=== PATIENT | male | born 1980 | race Two or more races ===

== ENCOUNTER 2019-05-21 18:50 | Emergency (ER) | payer OTHER ==
[2019-05-21] MEDS ORDERED: KETOROLAC TROMETHAMINE 60 MG/2 ML SDV IM ONE (19:25)
[2019-05-21] MEDS ORDERED: ONDANSETRON 4 MG TAB.RAPDIS PO ONE (19:25)
--- NOTE | 2019-05-21 19:25 | ER Document Report ---
ED Medical Screen (RME) - General Chief Complaint: Flank Pain Stated Complaint: ABDOMINAL PAIN, BLOOD IN URINE Time Seen by Provider: 05/21/19 19:22 Mode of Arrival: Ambulatory Information source: Patient Notes: 38-year-old male presented to ED for right flank pain that started 430 today. He states he also has blood in his urine. He states he does have a history of kidney stones about 9 years ago. states that he vomited once while in the waiting room. He states he smokes a pack a day. He does live with his . I have greeted and performed a rapid initial assessment of this patient. A comprehensive ED assessment and evaluation of the patient, analysis of test results and completion of medical decision making process will be conducted by an additional ED providers. TRAVEL OUTSIDE OF THE [place] IN LAST 30 DAYS: No - Related Data Allergies/Adverse Reactions: No Known Allergies Allergy (Unverified 08/03/15 04:13) Physical Exam - Vital signs Vitals: Temp Pulse Resp BP Pulse Ox 97.5 F 65 18 128/96 H 96 05/21/19 19:00 05/21/19 19:00 05/21/19 19:00 05/21/19 19:00 05/21/19 19:00 Course - Vital Signs Vital signs: Temp Pulse Resp BP Pulse Ox 97.5 F 65 18 128/96 H 96 05/21/19 19:00 05/21/19 19:00 05/21/19 19:00 05/21/19 19:00 05/21/19 19:00
[2019-05-21 19:56] LABS: AMORPHOUS SEDIMENT,URINE TRACE /HPF; APPEARANCE,URINE CLOUDY; BILIRUBIN,URINE NEGATIVE (NEGATIVE); COLOR,URINE DARK YELLOW; GLUCOSE, URINE NEGATIVE (NEGATIVE); KETONES,URINE NEGATIVE (NEGATIVE); LEUKOCYTE ESTERASE,URINE NEGATIVE (NEGATIVE); NITRITE,URINE NEGATIVE (NEGATIVE); PROTEIN,URINE 100 mg/dL (NEGATIVE); URINE SPECIFIC GRAVITY 1.019; UROBILINOGEN,URINE NEGATIVE mg/dL (<2.0)
[2019-05-21 20:45] LABS: ABSOLUTE BASOPHILS # (AUTO) 0.1 10^3/uL (0.0-0.2); ABSOLUTE EOSINOPHILS # (AUTO) 0.1 10^3/uL (0.0-0.6); ABSOLUTE LYMPHOCYTES (AUTO) 1.8 10^3/uL (0.5-4.7); ABSOLUTE MONOCYTES (AUTO) 0.8 10^3/uL (0.1-1.4); ABSOLUTE NEUT (AUTO) 11.9 10^3/uL (1.7-8.2); BASOPHILS % (AUTO) 0.5 % (0-2); EOSINOPHILS % (AUTO) 0.9 % (0-6); HEMATOCRIT 43.2 % (37.9-51.0); HEMOGLOBIN 13.6 g/dL (13.5-17.0); LYMPHOCYTES % (AUTO) 12.3 % (13-45); MEAN CORPUSCULAR HGB CONC 31.6 g/dL (32.0-36.0); MEAN CORPUSCULAR VOLUME 70 fl (80-97); MONOCYTES % (AUTO) 5.5 % (3-13); PLATELET COUNT 295 10^3/uL (150-450); RED CELL DISTRIBUTION WIDTH 14.9 % (11.5-14.0); SEGMENTED NEUTROPHILS % (AUTO) 80.8 % (42-78); TOTAL CELLS COUNTED % (AUTO) 100 %; WHITE BLOOD COUNT 14.7 10^3/uL (4.0-10.5)
--- NOTE | 2019-05-21 20:49 | RADIOLOGY REPORT (SQ) ---
CT ABDOMEN PELVIS WITHOUT IV CONTRAST EXAM DATE: 05/21/2019 7:27 PM CDT HISTORY: Right flank pain and hematuria. COMPARISON: None. TECHNIQUE: CT scan of the abdomen and pelvis was performed without IV contrast. This exam was performed according to our departmental dose-optimization program, which includes automated exposure control, adjustment of the mA and/or kV according to patient size and/or use of iterative reconstruction technique. FINDINGS: The lung bases are clear. No pleural or pericardial effusions. There is a 5 mm obstructing stone at the left UVJ with left-sided inflammatory changes. A tiny nonobstructing stone is seen in the right kidney. The liver, spleen, pancreas, gallbladder, and adrenal glands are normal. No small bowel obstruction. The appendix is normal. No evidence of acute diverticulitis. No adenopathy, free fluid, or free air is identified. The aorta is normal caliber. The osseous structures are intact. IMPRESSION: 1. 5 mm obstructing stone at the left UVJ with mild left-sided inflammatory changes. 2. Tiny nonobstructing stone in the right kidney.
[2019-05-21 21:03] LABS: ALBUMIN 5.4 g/dL (3.5-5.0); ALKALINE PHOSPHATASE 56 U/L (38-126); ANION GAP 15 (5-19); ASPARTATE AMINO TRANSFERASE 36 U/L (17-59); BILIRUBIN,DIRECT 0.2 mg/dL (0.0-0.4); BILIRUBIN,TOTAL 0.7 mg/dL (0.2-1.3); BLOOD UREA NITROGEN 15 mg/dL (7-20); CALCIUM 11.3 mg/dL (8.4-10.2); CARBON DIOXIDE 29 mmol/L (22-30); CHLORIDE 101 mmol/L (98-107); GLUCOSE 124 mg/dL (75-110); POTASSIUM 4.8 mmol/L (3.6-5.0); TOTAL PROTEIN 8.7 g/dL (6.3-8.2)
[2019-05-21] MEDS ORDERED: TAMSULOSIN HCL 0.4 MG CAP.SR.24H PO ONE (22:49)
[2019-05-21] MEDS ORDERED: NORMAL SALINE 1000 ML 1,000 ML IV ONE (22:49)
[2019-05-21] MEDS ORDERED: OXYCODONE-ACETAMINOPHEN 5-325 MG TABLET PO ONE (22:49)
--- NOTE | 2019-05-21 23:34 | ER Document Report ---
ED General - General Chief Complaint: Flank Pain Stated Complaint: ABDOMINAL PAIN, BLOOD IN URINE Time Seen by Provider: 05/21/19 19:22 Mode of Arrival: Ambulatory Information source: Patient Notes: This 38-year-old male presents emergency department with left-sided flank pain that started today at approximately 1630. He reports he vomited one time due to pain. Also had a headache. He reports history of kidney stones but he has not had them in a long time. Reports he drinks a lot of water Gatorade and sweet tea. Denies fever nausea or diarrhea. Last bowel movement was this morning. Denies pain with void but he noted blood in his urine today. Patient received Toradol by the [facility] provider reports that did help his pain earlier but he feels like it is coming back now. TRAVEL OUTSIDE OF THE [place] 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 Lives with: Family Family History: Reviewed & Not Pertinent Patient has suicidal ideation: No Patient has homicidal ideation: No Renal/ Medical History: Reports: Hx Kidney Stones Surgical Hx: Negative Review of Systems - Review of Systems Notes: Review HPI for review of systems., All other systems negative Physical Exam - Vital signs Vitals: Temp Pulse Resp BP Pulse Ox 97.5 F 65 18 128/96 H 96 05/21/19 19:00 05/21/19 19:00 05/21/19 19:00 05/21/19 19:00 05/21/19 19:00 - General General appearance: Appears well, Alert In distress: None - HEENT Head: Normocephalic, Atraumatic Eyes: Normal Conjunctiva: Normal Extraocular movements intact: Yes Neck: Normal, Supple. No: Lymphadenopathy - Respiratory Respiratory status: No respiratory distress Chest status: Nontender Breath sounds: Normal Chest palpation: Normal - Cardiovascular Rhythm: Regular Heart sounds: Normal auscultation Murmur: No - Abdominal Inspection: Normal Distension: No distension Bowel sounds: Normal Tenderness: Nontender Organomegaly: No organomegaly - Back Back: Normal, CVA tenderness - Left - Extremities General upper extremity: Normal ROM, Normal strength General lower extremity: Normal ROM, Normal strength - Neurological Neuro grossly intact: Yes Cognition: Normal Orientation: AAOx4 [place] Coma Scale Eye Opening: Spontaneous [place] Coma Scale Verbal: Oriented [place] Coma Scale Motor: Obeys Commands Santi Coma Scale Total: 15 Speech: Normal - Psychological Associated symptoms: Normal affect, Normal mood - Skin Skin Temperature: Warm Skin Moisture: Dry Skin Color: Normal Course - Re-evaluation Re-evalutation: 05/22/19 00:46 38-year-old male presents emergency department with complaints of left-sided flank pain that started this afternoon around 1630. Patient has history of kidney stones although he has not had a kidney stone in like 9 years. Reports he drinks Gatorade and water occasional sweet tea. CT shows 5 mm obstructing stone at the left UVJ with mild left-sided inflammatory changes and with tiny nonobstructing stones in the right kidney. Patient l eukocytosis 14.7 with slight shift. Patient denies pain with void. Denies fever vomiting diarrhea. Patient was instructed on Flomax narcotic for pain medication. He was also given a liter of fluids while in the emergency department. He was instructed to return immediately to the emergency department for fever increasing pain. Otherwise follow-up with urology on Friday. He verbalized understanding to all instructions. Abdomen/Pelvis CT 05/21/19 19:27 IMPRESSION: 1. 5 mm obstructing stone at the left UVJ with mild left-sided inflammatory changes. 2. Tiny nonobstructing stone in the right kidney. 05/21/19 20:19 05/21/19 20:19 MCV 70 fl (80-97) L 05/21/19 20: MCH 22.0 pg (27.0-33.4) L 05/21/19 20: MCHC 31.6 g/dL (32.0-36.0) L 05/21/19 20: RDW 14.9 % (11.5-14.0) H 05/21/19 20: Seg Neutrophils % 80.8 % (42-78) H 05/21/19 20:19 Chloride 101 mmol/L (98-107) 05/21/19 20:19 Carbon Dioxide 29 mmol/L (22-30) 05/21/19 20:19 Anion Gap 15 (5-19) 05/21/19 20:19 Est GFR ( Amer) > 60 (>60) 05/21/19 20:19 Glucose 124 mg/dL (75-110) H 05/21/19 20:19 Calcium 11.3 mg/dL (8.4-10.2) H 05/21/19 20:19 Total Bilirubin 0.7 mg/dL (0.2-1.3) 05/21/19 20:19 AST 36 U/L (17-59) 05/21/19 20:19 Alkaline Phosphatase 56 U/L (38-126) 05/21/19 20:19 Total Protein 8.7 g/dL (6.3-8.2) H 05/21/19 20:19 Albumin 5.4 g/dL (3.5-5.0) H 05/21/19 20:19 Urine Color DARK YELLOW 05/21/19 19:40 Urine Appearance CLOUDY 05/21/19 19:40 Urine pH 9.0 (5.0-9.0) 05/21/19 19:40 Ur Specific [place] 1.019 05/21/19 19:40 Urine Protein 100 mg/dL (NEGATIVE) H 05/21/19 19:40 Urine Glucose (UA) NEGATIVE mg/dL (NEGATIVE) 05/21/19 19:40 Urine Ketones NEGATIVE mg/dL (NEGATIVE) 05/21/19 19:40 Urine Blood LARGE (NEGATIVE) H 05/21/19 19:40 Urine Nitrite NEGATIVE (NEGATIVE) 05/21/19 19:40 Ur Leukocyte Esterase NEGATIVE (NEGATIVE) 05/21/19 19:40 Urine WBC (Auto) 12 /HPF 05/21/19 19:40 Urine RBC (Auto) >182 /HPF 05/21/19 19:40 05/22/19 05:05 - Vital Signs Vital signs: Temp Pulse Resp BP Pulse Ox 98.1 F 62 16 131/81 H 92 05/22/19 01:16 05/22/19 01:16 05/22/19 01:16 05/22/19 01:16 05/22/19 01:16 - Laboratory Result Diagrams: 05/21/19 20:19 05/21/19 20:19 Laboratory results interpreted by me: 05/21/19 05/21/19 05/21/19 19:40 20:19 20:19 WBC 14.7 H RBC 6.20 H MCV 70 L MCH 22.0 L MCHC 31.6 L RDW 14.9 H Lymph % (Auto) 12.3 L Absolute Neuts (auto) 11.9 H Seg Neutrophils % 80.8 H Creatinine 1.36 H Est GFR (MDRD) Non-Af 59 L Glucose 124 H Calcium 11.3 H Total Protein 8.7 H Albumin 5.4 H Urine Protein 100 H Urine Blood LARGE H - Diagnostic Test Radiology reviewed: Image reviewed, Reports reviewed Discharge - Discharge Clinical Impression: Flank pain, Kidney stone Condition: Stable Disposition: HOME, SELF-CARE Instructions: Flomax ([facility]), Intravenous (IV) Fluids ([facility]), Oral Narcotic Medication ([facility]), Toradol Injection ([facility]) Additional Instructions: *You have been evaluated for flank pain, kidney stone *Take medication as prescribed *Follow up with a urologist within one week *Return to ED for worsening condition, changes, needs, fever, increased pain, difficulty voiding Monitor your blood pressure. Your blood pressure was elevated today. This may be because you were anxious, in pain or because you need medication. It is important to follow up with your primary care provider for full evaluation. Prescriptions: Tamsulosin HCl [Flomax] 0.4 mg PO DAILY #7 cap.er.24h Oxycodone HCl/Acetaminophen [Percocet 5-325 mg Tablet] 1 tab PO ASDIR PRN #10 tab PRN Reason: Forms: Elevated Blood Pressure, Smoking Cessation Education
[2019-05-22] MEDS ORDERED: HYDROCODONE/ACETAMINOPHEN 5-325 MG (6 TAB/ER DISP) PO PRN (00:45)
[2019-05-22 01:19] VITALS: BP 131/81
== END 2019-05-22 01:19 | disposition home or self-care (01) ==
LOC: ER 18:50
DX: N20.0 Calculus of kidney (principal); R10.9 Unspecified abdominal pain; R31.9 Hematuria, unspecified; R11.10 Vomiting, unspecified; R51 Headache; F17.200 Nicotine dependence, unspecified, uncomplicated
CPT/HCPCS: 99284; 96372; 96360; 36415; 87086; 85025; 80053; 81001; 74176; J1885; S0119; J7030